=== PATIENT | male | born 1995 | race Two or more races ===

== ENCOUNTER 2016-04-29 09:29 | Inpatient (IN) | payer OTHER ==
[~2016-04-29] VITALS: Ht 180.3 cm; Wt 99.6 kg
--- NOTE | ~2016-04-29 | CLPRLASSUM ---
PATIENT: TUCKER SANTILLAN | | [facility] UNIT #: [id number] | [address] AGE/SEX: 20 M : 89 | [address] | [place] [id number] ADMIT/REG DATE: 04/29/16 | ROOM: [facility] LOC: ADTC | ADTC | Client Problem List/Assessment Summary Date: 05/05/16 Problems identified by the client: Client reported he was accepted into drug court and the project account manager recommended he come to residential treatment, instead of [facility]. Problems identified by significant others: His mother does not speak Upper Sorbian, but do plan to get them in for a session with an interpretor. Client's Strengths: Client identified his strengths as: He knows when to stop and he knows how to say no. Problem List: Code: T Client continues to use alcohol &/or drugs despite ongoing negative consequences. Code: T Client does not "reach-out to others for help" and instead resumes using alcohol &/or drugs. 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 Code: T Client needs to identify relapse warning signs and develop a plan to deal with them as they arise. Code Wells: T: to be addressed during course of treatment O: problem noted, expected to resolve itself with abstinence--specific tx plan not required R: problem noted, will be referred upon discharge PRIMARY COUNSELOR: JOIE Walker
--- NOTE | ~2016-04-29 | TXPLANREV ---
"PATIENT: TUCKER SANTILLAN | | [facility] UNIT #: [id number] | [address] AGE/SEX: 20 M : [birth year] | [address] | [place] [address] ADMIT/REG DATE: 04/29/16 | ROOM: [facility] LOC: ADTC | ADTC | Treatment Plan/Staffing Review Date: 05/12/16 Treatment plan was reviewed and determined appropriate as written: Yes Treatment plan was reviewed and the following changes/addition/deletions are necessary: Client is to continue working on treatment plan assignments. He is working on feelings letters. Discharge plans were reviewed and determined appropriate as previously documented: No Discharge plans were reviewed and determined to be as follows: Client is planning to return to his home, and will be recommended to attend aftercare, which we will set up prior to leaving, along with calling a sponsor on a regular basis and attending AA/NA meetings. Other pertinent issues discussed during this staffing review include: None at this time. Staff Present: Sary Arroyo PRIMARY COUNSELOR: JOIE Walker Client Signature Counselor Signature Date Time "
--- NOTE | ~2016-04-29 | TXPLANREV ---
"PATIENT: TUCKER SANTILLAN | | [facility] UNIT #: [id number] | [address] AGE/SEX: 20 M : 89 | [address] | [place] [id number] ADMIT/REG DATE: 04/29/16 | ROOM: [facility] LOC: ADTC | ADT | Treatment Plan/Staffing Review Date: 05/26/16 Treatment plan was reviewed and determined appropriate as written: Yes Treatment plan was reviewed and the following changes/addition/deletions are necessary: Client is to continue working on treatment plan assignments. He is finishing up with Relapse Prevention and is to continue reading the Big Book. Discharge plans were reviewed and determined appropriate as previously documented: Yes Discharge plans were reviewed and determined to be as follows: Client will discharge, return to his Mom's house, and attend aftercare here with us. He is fully aware that if he struggles at home with his Mom, or if he relapses even one time, he will be recommended to go to [facility]. 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 In the meantime, he is also to begin attending 3-5 AA/NA meetings per week, get and call a sponsor on a regular basis, and learn how to work a strong program of recovery, which includes doing community service work. Other pertinent issues discussed during this staffing review include: None at this time. Staff Present: Sary Jorge PRIMARY COUNSELOR: Charlene Hylton [facility] Client Signature Counselor Signature Date Time "
--- NOTE | ~2016-04-29 | RESCARESUM ---
"PATIENT: TYLER SANTILLAN | | [facility] UNIT #: [id number] | [address] AGE/SEX: 20 M : 89 | [address] | [place] [id number] ADMIT/REG DATE: 04/29/16 | ROOM: [facility] LOC: ADTC | ADT | Summary of Residential Care Primary Counselor: Charlene SALTER Date of Admission: 04/29/16 Date of Discharge: 05/27/16 Referral Source: Drug Court Primary Care Provider Prior to Admission: Self Admitting Diagnosis: 304.30 Cannabis Use Disorder, Severe; 304.40 Stimulant Use Disorder, Moderate, 305.40 Sedative Use Disorder, Mild; 305.10 Tobacco Use Disorder Discharge Diagnosis: Same Goals Achieved: Tyler was able to identify negative consequences of his addiction, by completing various packets, also designed to assist him in gaining insight to the disease concept, including Step 1. He wrote and processed feelings letters, worked on his anger issues, as well as relapse prevention. Continued Obstacles to Sobriety/Relapse Issues: Not attending aftercare, or going to AA/NA meetings, not getting and calling a sponsor on a regular basis, not dealing with anger and other feelings, not following drug court rules and regulations, not getting his work permit, not being able to find a job and not learning how to work a strong program of recovery. Family Issues Addressed: The only issues addressed were those written in feelings letters. His Mom did not attend family education, and he has deep anger toward his father that he addressed but wasn't willing to work thru. Y Individual Therapy Y Group Therapy Y Educational Series on Substance Abuse N Parents/Significant Others Attended Family Program N Acute Medical Problems During the Course of Treatment N Transferred to Hospital During the Course of Treatment Y Accepting of Substance Abuse Problem N Non-accepting of Substance Abuse Problem N Required Psychological or Psychiatric Consultation During the Course of Treatment Completed AA Step # 1 During This Level of Care Significant Incidences During Treatment: None Reason For Discharge: Y Completed Residential TX Goals and Ready For Next Level of Care N Left Tx Against Medical Advice/Treatment Goals Not Complete N Completed Residential Tx Goals But Refusing Continuing Care Recommendations N Discharged Due to Noncompliance/Treatment Goals not Completed PATIENT: TYLER SANTILLAN | | [facility] UNIT #: [id number] | [address] AGE/SEX: 20 M : 89 | [address] | [place] [address] ADMIT/REG DATE: 04/29/16 | [facility] LOC: ADTC | ADTC | Summary of Residential Care N Discharged Earlier Than Planned Due to: Continuing Care Plan/Recommendations: N Intensive Partial Care Y Sponsor N Partial Care Y AA Meetings/NA Meetings Y Outpatient N Co-dependency Services N Therapeutic Community N [facility] [address] N Mental Health Therapy N Marriage Counseling N Other Specific Continuing Care Plan: It is recommended that Tyler go home, work on getting his work permit, attend aftercare here with Krystina Ugarte, follow all drug rules and recommendations, attend 3-5 AA/NA meetings and get and call a sponsor on a regular basis and learn how to work a strong program of recovery. If he struggles at home, or if drug court is recommending it, he must follow the recommendation of going to sober living. 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 PRIMARY COUNSELOR: JOIE Walker"
--- NOTE | ~2016-04-29 | INDIVTXPLN ---
"PATIENT: TUCKER SANTILLAN | | [facility] UNIT #: [id number] | [address] AGE/SEX: 20 M : [birth year] | [address] | [place] [phone] ADMIT/REG DATE: 04/29/16 | ROOM: [facility] LOC: ADTC | ADTC | Individualized Treatment Plan Date: 05/05/16 Problem Statement/Issue Identified: Client has learned to deny or stuff feelings; needs to learn to identify and process feelings in a clean/sober manner. Goal: Client will learn how to identify and express feelings in a healthy, clean/sober manner. Objectives/Activities to achieve goal: 1. Client is to write feelings letters to the following people, each separately, and process them with counselor and with family, if able: Mother, sister, Grandma, Grandpa and father. Due Date:05/17/16 Complete: Incomplete: Client signature Date Counselor signature Date Outcome/Measurement of Progress Towards Goal: Counselor's signature Date "
--- NOTE | ~2016-04-29 | INDIVTXPLN ---
"PATIENT: TUCKER SANTILLAN | | [facility] UNIT #: [id number] | [address] AGE/SEX: 20 M : 89 | [address] | [place] [address] ADMIT/REG DATE: 04/29/16 | ROOM: [facility] LOC: ADTC | ADTC | Individualized Treatment Plan Date: 05/20/16 Problem Statement/Issue Identified: Client's method of expressing anger has been harmful to self and/or others, and is made worse by substance abuse, therefore, client needs to find other ways to deal with anger, so he can learn how to maintain his recovery. Goal: Client will learn healthy ways to deal with his anger. Objectives/Activities to achieve goal: 1. Client is to complete the Anger Log each time he gets angry about anything, and process what he learns with counselor. Due Date:05/27/16 Complete: Incomplete: 2. Client is to read and highlight all he can relate to in the Releasing Anger book and process with counselor what he learns. Due Date:05/27/16 Complete: Incomplete: 3. Client is to complete the Relapse Prevention packet and the relapse triggers paper, and process them with counselor. Due Date:05/27/16 Complete: Incomplete: Client signature Date Counselor signature Date Outcome/Measurement of Progress Towards Goal: Counselor's signature Date "
--- NOTE | ~2016-04-29 | TXPLANREV ---
"PATIENT: TUCKER SANTILLAN | | [facility] UNIT #: [id number] | [address] AGE/SEX: 20 M : [birth year] | [address] | [place] [phone] ADMIT/REG DATE: 04/29/16 | ROOM: [facility] LOC: ADTC | ADTC | Treatment Plan/Staffing Review Date: 05/19/16 Treatment plan was reviewed and determined appropriate as written: Yes Treatment plan was reviewed and the following changes/addition/deletions are necessary: Client is to continue working on treatment plan assignments. He is finishing up with feelings letters and will begin working on anger. Discharge plans were reviewed and determined appropriate as previously documented: No Discharge plans were reviewed and determined to be as follows: Client will benefit from going to sober living, however, there are several barriers, so it is not certain what we will recommend for his aftercare. Other pertinent issues discussed during this staffing review include: None at this time. Staff Present: Krystina Jorge PRIMARY COUNSELOR: JOIE Walker Client Signature Counselor Signature Date Time "
--- NOTE | ~2016-04-29 | INDIVTXPLN ---
"PATIENT: TUCKER SANTILLAN | | [facility] UNIT #: [id number] | [address] AGE/SEX: 20 M : 89 | [address] | [place] [address] ADMIT/REG DATE: 04/29/16 | ROOM: [facility] LOC: ADTC | ADTC | Individualized Treatment Plan Date: 05/05/16 Problem Statement/Issue Identified: Client continues to use alcohol &/or drugs despite ongoing negative consequences, and he did not know anyone to reach out to for help. Goal: Client will learn to identify negative consequences of his addiction, attend AA/NA meetings and meet men in recovery. Objectives/Activities to achieve goal: 1. Client is to complete the How to Get Started packet, process it with counselor and selected pages in group. Due Date:05/07/16 Complete: Incomplete: 2. Client is to complete Step 1, process it with counselor and selected pages in group. Due Date:05/09/16 Complete: Incomplete: 3. Client is to attend AA/NA meetings, ask for and get at least 5 names and numbers of men in recovery and share that list with counselor. Due Date:05/17/16 Complete: Incomplete: Client signature Date Counselor signature Date Outcome/Measurement of Progress Towards Goal: Counselor's signature Date "
--- NOTE | 2016-04-29 10:23 | NUR ---
SPIRITUAL EDUCATION 1 HR. Topics today were orienting newcomers and discussion and presentation on segments of TOWARDS SPIRITUALITY.
--- NOTE | 2016-04-29 11:00 | NUR ---
INITIAL SESSION 1 HR: Clt was oriented to tx plans, schedules and what to expect from tx and this counselor. He advised he was supposed to start IOP, but did not do so, and his levels for THC were increasing, so was recommended by drug court to come to residential tx. Clt stated he was not able to get his green card, and isn't sure if he'll be able to get a job when he gets out of tx. He lives w/ his mom and sister. His mom does not speak Yoruba, so will determine if she will come for family session and we will get an interpretor. He is to begin working on initial paperwork.
--- NOTE | 2016-04-29 11:04 | NUR ---
ADMISSION NOTE Rights/Responsibilities: Copy given and explained to client. Signed and accepted by client. Client oriented to physical lay out of the ADTC unit, given Big Book and admission packet. A Kaushik was assigned. Ruben Client is a 20yr old single male. Referred by Drug Court. Brought to tx by mother, lives in [place], [place]. DOC, Cannabis, last used 03/28/16, 2 joints. No allergies, No meds. Mother will participate in tx. Was searched no contraband found. Initial paperwork given and guidelines gone over. Doctor has been notified.
--- NOTE | 2016-04-29 23:00 | NUR ---
tech note: Client played Pictionary for recreation & attended onsite NA meeting.Client was checked into his room & seen by the DR. Client gave his first intro. SE: coming to treatment.
--- NOTE | 2016-04-29 23:28 | NUR ---
Eduction: 1 Hour. Client attended "Disease Concept" lecture.
--- NOTE | 2016-04-30 05:38 | NUR ---
tech note: Client was motionless in no distress at all bed checks.
--- NOTE | 2016-04-30 10:19 | NUR ---
Tech Note: Client participated in Spiritual Enrichment. Client stated that he is working on, "How to Get Startedin Treatment."
--- NOTE | 2016-04-30 11:51 | NUR ---
Group 1.5 Hr Ratio 1:11/Topics today were orientating two new members to group rules and goals. A feelings letter and dealing with anger. Client was orientated to group rules and goals. He shared he usally stuffs his feelings and then blows up but does not solve his problems.
--- NOTE | 2016-04-30 15:33 | NUR ---
Education 1 Hour: Client heard a panel of speakers from the local recovery community, who shared their experience, strength and hope.
--- NOTE | 2016-04-30 16:00 | NUR ---
IS 1 HR: Umer shared that he is here w/o a green card, due to being in correction when he was supposed to go to court for it. He also stated that his Mom's friend is taking care of it for him, but that he will have to be the one to talk on the phone to them. He heard he needs to take care of these things on his own, so he can stay here and complete drug court, as there is always a chance he could be deported. Umer stated his grandma lives in [place] so if he does have to go back, he has family there. He was given Step 1 and is working on his How to Get Started pkt.
--- NOTE | 2016-04-30 17:09 | NUR ---
Step education/1 hr/ Focus was on step one. Each person completed a worksheet on this topic and then chose 4 from sheet to share out loud. This person participated.
--- NOTE | 2016-04-30 23:22 | NUR ---
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, participated in Guided Meditation and attended on-site AA meeting. SE: JIM
--- NOTE | 2016-05-01 04:35 | NUR ---
Bed Note: Clt lay motionless in bed with eyes closed showing no distress at all bed checks.
--- NOTE | 2016-05-01 10:55 | NUR ---
FAMILY CONTACT: Umer's mother does not speak Qatari, but his sister does. They are aware they can visit this weekend. At some point during umer's stay in tx, we will get them in for a family session and show them the video Disease Concept.
--- NOTE | 2016-05-01 10:56 | NUR ---
TRAUMA NOTE: Clt denies any trauma at this time.
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
--- NOTE | 2016-05-01 13:00 | NUR ---
PEER REVIEWS, 1 HR: Clt participated in peer review process and was able to give open and honest feedback to those receiving a review.
--- NOTE | 2016-05-01 15:47 | NUR ---
Tech Note: Client watched the second half of Pleasure [employer]ven for education and is working on Step 1.
--- NOTE | 2016-05-01 20:26 | NUR ---
Tech note: client watched tv and movies, client was late for guidelines SE:video
--- NOTE | 2016-05-02 04:32 | NUR ---
Bed note: client was in bed with eyes closed and no distess at all bed checks. except was awake at first bed check talking quietly with roommate
--- NOTE | 2016-05-02 16:24 | NUR ---
Tech Note: Client attended N.A.Panel and is working on Step One and also had a visit.
--- NOTE | 2016-05-02 20:09 | NUR ---
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 Client watched tv. SE: visit.
--- NOTE | 2016-05-03 04:58 | NUR ---
Bed Note : Client had eyes closed and in no distress at all bed checks.
--- NOTE | 2016-05-03 16:18 | NUR ---
Tech Note: Client is working on step 1, client had visitors
--- NOTE | 2016-05-03 23:33 | NUR ---
TECH NOTE: Client attended AA panel, participated in community clean and watched tv/movies. SE: seeing old friend
--- NOTE | 2016-05-04 04:14 | NUR ---
BED NOTE: Client was in bed, motionless with eyes closed all three bed checks.
--- NOTE | 2016-05-04 10:39 | NUR ---
Tech notes: Client is working on Step 1
--- NOTE | 2016-05-04 12:44 | NUR ---
Experiential Group 1.5 hr/ Clients all participated in family sculpturing by role-playing, feedback, and relating. They also shared what they needed to get help with and a gratitude. Client wants help to keep out of his head and glad family member is healthy.
--- NOTE | 2016-05-04 13:31 | NUR ---
Education note: Client watched video "It can't happen to me"
--- NOTE | 2016-05-04 16:00 | NUR ---
RECOVERY 101 1 HR/ Clients learned about Fundamentals of recovery and tools from AA/NA. They participated by sharing what they hear at meetings that are important for their recovery like: working the steps, how to get and use sponsors, reading C.A.L. literature, service work, HP concept, opening up, slogans, using the Serenity Prayer, attending functions, what is closed and open meetings, etc.
--- NOTE | 2016-05-04 19:07 | NUR ---
Education 1HR: Clt attended lecture given by counselor on "Communication".
--- NOTE | 2016-05-04 22:26 | NUR ---
Tech note: Client participated in group by playing catch phrase. Client attended an onsite NA meeting. SE: NA meeting
--- NOTE | 2016-05-05 05:06 | NUR ---
Bed note : Client was motionless with eyes closed at all bed checks.
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
--- NOTE | 2016-05-05 16:33 | NUR ---
Tech Note: Client watched video The Enabler and is working on Step 1.
--- NOTE | 2016-05-05 18:47 | NUR ---
Education: 1 Hour. Client attended presentation given by [facility] AIDS/STDS/HIV. HIV testing was available.
--- NOTE | 2016-05-05 20:15 | NUR ---
Relapse Prevention,04/03 1.0, Client attended and participated in relapse prevention education which focused on internal and external triggers.
--- NOTE | 2016-05-05 23:06 | NUR ---
Tech note: Client participated in rec by playing pictionary. Client went to guided meditation and attended an onsite AA meeting. SE: Whole day
--- NOTE | 2016-05-06 05:31 | NUR ---
tech note: client was motionless in no distress at all bed checks.
--- NOTE | 2016-05-06 09:16 | NUR ---
SPIRITUAL EDUCATION 1 HR. We started a two part education on Forgiveness today and group discussion on baum points.
--- NOTE | 2016-05-06 10:19 | NUR ---
Tech Notes: Client is working on Fl's.
--- NOTE | 2016-05-06 11:30 | NUR ---
GROUP 1.5 HRS. 1:10 Clients oriented new peer to purpose and rules of group. This client got his HOW TO GET STARTED IN TREATMENT workbook out during time of orienting peer and was asked to put it down until time to share. When sharing assigned pages, he expressed resentment towards drug court that they will not let him work. Upon further discussion, he reports he does not have a work permit. Peers expressed concerns about client being angry today which he owned. He was given supportive feedback by peers as he shared about his life story and not wanting to be in [place] and not feeling accepted. Client states he does not trust anyone except his counselor. Peer shared his STEP 1 ASSIGNMENTS including compromising values and effects on others. attentive and offered appropriate feedback.
--- NOTE | 2016-05-06 23:20 | NUR ---
Tech note:Client participated in rec-worked on beaded projects SE:waking up
--- NOTE | 2016-05-06 23:40 | NUR ---
Education: 1 hour lecture on step 2 & 3 given by counselor
--- NOTE | 2016-05-07 04:39 | NUR ---
Bed note: client was in bed with eyes closed and no distress at all bed checks.
--- NOTE | 2016-05-07 11:30 | NUR ---
AM GRP 1.5 HRS, Ratio 1:11/ Clt participated in grp discussion on various topics, but primarily could relate to what do he had to pay to stay using. He advised he has argued w/ family and pushed people away. He stated he has struggled w/ trusting people, so knows people have not been able to trust him either.
--- NOTE | 2016-05-07 11:32 | HP ---
ADMIT: 04/29/2016 RM/LOC: [facility] MR#: [id number] [address] [facility] [address] [place], [place] [id number] TUCKER SANTILLAN [address] [place] [address] [place] [address] History and Physical SEX: M AGE: 20 : 1995 DATE OF SERVICE: This is for his admission to the residential care program at the [facility]. CHIEF COMPLAINT: Drug problem, recent failed UA while on Drug Court. CLINICAL HISTORY: The patient is a 20-year-old male, admitted to the residential care program for treatment of his cannabis use disorder. The patient comes to treatment through Drug Court after failing a UA for marijuana. The patient notes that pot is his drug of choice. He first started using marijuana at age 14, and has been a regular user for the last 6 years typically smoking about 2 to 3 g of pot per day. He notes over the last summer, he did get into cocaine and was using cocaine regularly on weekends and used regularly from August to December of 2015. In addition to his cocaine and marijuana use, the patient admits to abusing Xanax and tramadol over the past summer as well. The patient notes that he was arrested for possession with intent to distribute cocaine and Xanax that occurred last summer and as a result of that, he was placed on Drug Court. As a portion of his Drug Court agreement, he was doing outpatient counseling, but with the positive UA, was referred to residential treatment. The patient notes that he rarely drinks, will occasionally drink to intoxication, but he prefers pot over alcohol. He notes he really has not used any drugs since November of 2015, when he was arrested. The patient spent from November of 2015 to 01/25/2016 in nursing home. He then went through Drug Court and got out of nursing home. He notes he smoked pot on one occasion on 03/27/2016, which is when he had the dirty UA. As noted, admitted at this time for treatment of his cannabis use disorder, stimulant use disorder, and benzodiazepine use disorder. PAST MEDICAL HISTORY: Previous Hospitalizations: None. Previous Operations: None. CURRENT MEDICATIONS: None. ALLERGIES: NONE KNOWN. MEDICAL ILLNESSES: Denies any chronic health problems. REVIEW OF SYSTEMS: A 12-point review of systems is negative with no significant cardiac, pulmonary, GI, , musculoskeletal, or neurologic problems. The patient notes that he smokes less than a pack a day. In the past, he also used to use some chewing tobacco, but he is trying to quit all forms of tobacco at this time. SOCIAL HISTORY: The patient graduated high school in 2014. 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 He lost his current job when he was arrested in November and has been unemployed since then. He lives with his mother and younger sister. He notes he is the primary breadwinner of the home. ADMIT: 04/29/2016 RM/LOC: [facility] MR#: [id number] [address] [place] [id number] LAI PATRICIO [address] [place] [address] History and Physical SEX: M AGE: 20 : 1995 FAMILY HISTORY: He notes that he was born in [place] and knows very little about his father. His parents split up when he was quite young. His mother moved around for a while, but he has been living in [place] for the past 7 years. He is unaware of any other family history of drug or alcohol problem in the family. PHYSICAL EXAMINATION: VITAL SIGNS: Temp 95.8, pulse 57, respirations 20, blood pressure 132/77, height 5 feet 11 inches, weight is 217 pounds. GENERAL: The patient is a 20-year-old male, who appears his stated age. He is in no acute distress. He is oriented x3. HEENT: Entirely unremarkable. Nose and throat noninflamed. Oropharynx normal. NECK: Supple. Thyroid not enlarged. No cervical adenopathy. No neck vein distention. LUNGS: Noted to be clear. HEART: Has a regular rhythm without murmur. ABDOMEN: Soft, nontender. No masses. No organomegaly. Bowel sounds normoactive. GENITALIA: Normal male. EXTREMITIES: Normal to gross exam. Full range of motion. No bony deformities. No clubbing or cyanosis. INTEGUMENT: No rashes or worrisome skin lesions. NEUROLOGIC: Within normal limits. No focal deficit. Balance and gait normal. Cranial nerves II through XII grossly intact. MENTAL STATUS EXAMINATION: He is pleasant, cooperative. Affect is appropriate. He has no bizarre ideation. No delusions. No hallucinations. No significant depressive symptoms. He is oriented x3. Memory is intact. He is of average intelligence, however, insight is limited and judgment is guarded. ASSESSMENT: At the time of admission: 1. Cannabis use disorder, severe. ADMIT: 04/29/2016 RM/LOC: [facility] MR#: [id number] [address] [place] [id number] [place] [address] History and Physical SEX: M AGE: 20 : 1995 2. Stimulant/cocaine use disorder, moderate. 3. Sedative hypnotic/benzodiazepine use disorder, mild. 4. Tobacco use disorder. PLAN: Plan is to admit the patient to the residential care program with a tentative discharge date of 05/27/2016. Upon completion of treatment, he is unsure of his plan. He will follow through on aftercare recommendations made by the staff at the time of discharge from residential care. The patient should consider going to a sober living community to help facilitate long-term sobriety; however, he would like to return to his home where he lives with his mother and sister and do outpatient aftercare here at [facility]. Arron Rogel MD/ marquez JOB #: [id number] CC: Arron Rogel, Attending Physician FAMILY PHYSICIAN, Family Physician
--- NOTE | 2016-05-07 14:21 | NUR ---
Education 1 Hour: Client heard a presentation on, "Marijuana."
--- NOTE | 2016-05-07 14:47 | NUR ---
FAMILY EDUCATION 3 HRS. Client attended alone and took part in the discussion on the disease concept. Client shared chemical history and the consequences.
--- NOTE | 2016-05-07 14:59 | NUR ---
Tech Note: Client participated in Spiritual Enrichment in the morning and walked in the halls for afternnon exercise. Client stated that he is working on Step One and writing Feelings Letters.
--- NOTE | 2016-05-07 23:05 | NUR ---
Tech Note: Client participated in rec and attended A.A.Meeting.
--- NOTE | 2016-05-07 23:21 | NUR ---
Education Note: Client watched the healthy families video which lasted an hour.
--- NOTE | 2016-05-08 04:42 | NUR ---
Bed note: Client was in bed with eyes closed and no distress at all bed checks, client was awake at first bed check
--- NOTE | 2016-05-08 11:30 | NUR ---
Group 1.5hr/ 11:1 Clients all were attentive as peers shared GS packets and some shared how they relate. This client was attentive and mostly quiet.
--- NOTE | 2016-05-08 11:30 | NUR ---
Group 1.5hr/ 11:1 Clients all were attentive as peers shared GS packets and some shared how they relate. This client did give feedback and relate, he shared his GS packet with the group also. He stated "my addiction took over and controlled me". He also had resentment with a won that told on him to police and he is resentful so was given feedback on the damage of resentments and how to forgive.
--- NOTE | 2016-05-08 15:21 | NUR ---
PEER REVIEWS 1 HR: Clt participated in peer review process and was able to give open and honest feedback to those receiving a review.
--- NOTE | 2016-05-08 16:28 | NUR ---
Tech Note: Client watched a video "How to Sabotage Your Treatment" and is working on Feelings Letters.
--- NOTE | 2016-05-08 23:49 | NUR ---
TECH NOTE: Client participated in guideline reading, watched tv/movies and used the phone. SE: meeting with counselor
--- NOTE | 2016-05-09 04:47 | NUR ---
BED NOTE: Client was in bed, motionless with eyes closed all three bed checks.
--- NOTE | 2016-05-09 12:25 | NUR ---
PEER REVIEWS 1 HR: Clt participated in peer review process and was able to give open and honest feedback to those receiving a review.
--- NOTE | 2016-05-09 16:17 | NUR ---
Tech Note: Client went to AA mtg at [address] [place] [address]. Is working on Feelings Letters.
--- NOTE | 2016-05-09 20:04 | NUR ---
TECH NOTE: Client played Catch Phrase for REC, attended off site AA meeting, watched TV/movies and used phone. SE: all day
--- NOTE | 2016-05-10 04:48 | NUR ---
Bed Note: Clt lay motionless in bed with eyes closed showing no distress at all bed checks.
--- NOTE | 2016-05-10 16:00 | NUR ---
Tech Note: Client participated in Big Book Study. Client stated that he is working on writing Feelings Letters. Client received visitors.
--- NOTE | 2016-05-10 22:53 | NUR ---
TECH NOTE: Client attended AA panel, participated in community clean and watched tv/movies. SE: all day
--- NOTE | 2016-05-11 04:24 | NUR ---
Bed Note: Clt lay motionless in bed with eyes closed showing no distress at all bed checks.
--- NOTE | 2016-05-11 10:17 | NUR ---
Tech notes: Client is working on Fl's.
--- NOTE | 2016-05-11 12:00 | NUR ---
Group 1.5hr/ 12:1 Clients heard peer share about guilt and many client gave feedback and related. This client did get involved.
--- NOTE | 2016-05-11 12:42 | NUR ---
Education Note: Client attended educational speaker Kit on Crossaddiction.
--- NOTE | 2016-05-11 17:00 | NUR ---
FAMILY EDUCATION 3 HRS. Client attended alone and took part in the discussion on the family roles, codependency and detachment. He related to family hero role while peers see him as lost child which he disagreed with that feedback. Peers agreed that client has opened up since he first arrived. He states he get quiet when he is angry because he has too much to lose to get in a fight. He also shared that his younger sister resents him and there is a lot of animosity between them.
--- NOTE | 2016-05-11 20:35 | NUR ---
Education: 1 hour lecture on feelings given by counselor
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
--- NOTE | 2016-05-11 23:43 | NUR ---
Tech Note: Client was in Family SE: Family
--- NOTE | 2016-05-12 04:01 | NUR ---
bed note: client was in bed with eyes closed and no distress at all bed checks.
--- NOTE | 2016-05-12 13:18 | NUR ---
A.M.1.5 hr group/ Group heard assignments then discussed anger, how to manage anger, forgivness, assertivness and making amends. This client was attentive.
--- NOTE | 2016-05-12 15:00 | NUR ---
BIG GRP 5:21/ We had a big grp to confront sleeping pills being on the unit, dishonesties, and anything else going on that needed to be addressed. Clt denied knowing someone had brought anything on the unit. He sat mostly quiet, until one of his peers told him there are people having issues w/ him and that he has a bad attitude. Clt asked the grp who has a problem with him, and when noone said anything or put their hand up, he asked them to come to him and let him know if they have an issue.
--- NOTE | 2016-05-12 15:15 | NUR ---
Education Note: Client heard a presentation on, "Grief."
--- NOTE | 2016-05-12 15:26 | NUR ---
Tech Note: Client particiapted in light stretching for morning exercise and walked in the halls in the afternoon. Client stated that he is working on writing Feelings Letters.
--- NOTE | 2016-05-13 00:06 | NUR ---
Education: 1 hour lecture given by Counselor on Step 1
--- NOTE | 2016-05-13 00:19 | NUR ---
Tech note: client worked on projects for the alumni sancho for rec and attended AA meeting SE: Group
--- NOTE | 2016-05-13 04:16 | NUR ---
Bed Note: Clt lay motionless in bed with eyes closed showing no distress at all bed checks.
--- NOTE | 2016-05-13 10:29 | NUR ---
Tech Notes: Client is working on Fl's.
--- NOTE | 2016-05-13 12:55 | NUR ---
Group 1.5hours 1:11 Clients discussed the topic of resentments. Client shared how he could relate to having resentments towards his mother because he felt that he had to take care of her and his sister. Student: Lincoln Mackay BS [facility]
--- NOTE | 2016-05-13 13:27 | NUR ---
Education note: Client attended education by [facility]
--- NOTE | 2016-05-13 16:00 | NUR ---
IS 1 HR: Umer had caught me in the lopez earlier about the phone call he had made to his Mom's friend about getting his work visa and that she told him he may very well lose it, so he needs to get an atty. Umer stated he already pretty much knew this, so wasn't shocked, and isn't real worried yet, so asked for a note to call her again tomorrow as she is going to [place] to talk to someone about it. He is to continue working on his feelings letters.
--- NOTE | 2016-05-13 17:51 | NUR ---
SPIRITUAL EDUCATION 1 HR. Today we discussed ways to quiet the mind and meditation and creativity.
--- NOTE | 2016-05-13 23:03 | NUR ---
Grabit note: Client played a game for recreation & attended onsite NA meeting. Client was redirected by [employer] for his language. SE: Group.
--- NOTE | 2016-05-14 02:18 | NUR ---
Education: 1 Hour. Client attended "Unresolved Anger" video & discussion presented by staff.
--- NOTE | 2016-05-14 04:59 | NUR ---
BED NOTE: Client was in bed motionless with eyes closed all three bed checks.
--- NOTE | 2016-05-14 11:20 | NUR ---
Tech Note: Client participated in Spiritual Enrichment and followed programming.
--- NOTE | 2016-05-14 11:39 | NUR ---
Group 1.5hours 1:11 Clients shared assignments from their Getting Started packet and feelings letters. Client sat quiet for most of the group except to make a comment about people not getting angry for not being able to share assignments in group. Student: Lincoln Niño
--- NOTE | 2016-05-14 13:08 | NUR ---
Education 1 Hour: Client heard a presentation from a member of the recovery community, who shared his experience, strength and hope.
--- NOTE | 2016-05-14 16:54 | NUR ---
STEP EDUCATION/1 HR/ focus was on step 4. Discussed what step 4 was about and then each person answered if there were any things in their family history that bothers them and do they feel they are blocked in any area. This client participated and shared how hard it was when he came here at age 8 not knowing the language and it took him 2 years to learn it.
--- NOTE | 2016-05-14 20:21 | NUR ---
Education 1HR: Clt watched video by Hannah Haddad on Step 5.
--- NOTE | 2016-05-14 22:34 | NUR ---
TECH NOTE: Client played Catch Phrase for REC, participated in Guided Meditation and attended onsite AA meeting. SE: all day
--- NOTE | 2016-05-15 04:27 | NUR ---
Bed Note: Clt lay motionless in bed with eyes closed showing no distress at all bed checks.
--- NOTE | 2016-05-15 12:55 | NUR ---
Group 1.5 hr/ 12:1 Client did share his Step 1 and did a very good job owning how his addiction hurt him and others. He heard peers relate to him and give feedback.
--- NOTE | 2016-05-15 13:00 | NUR ---
PEER REVIEWS 1.25 HRS: Clt participated in peer reviews and took a risk to give open and honest feedback to those receiving a review.
--- NOTE | 2016-05-15 15:45 | NUR ---
Tech Note: Client watched a video "It Can't Happen To Me" and is working on Feelings Letters.
--- NOTE | 2016-05-15 22:33 | NUR ---
Tech note : Client watched tv, played games and talked on the phone. Had a really hard time waiting his turn on the phone. very aggressive phone call, swearing in spanis and disrespectful to Marde. SE; card games
--- NOTE | 2016-05-16 05:00 | NUR ---
Bed note: Client was in bed with eyes closed and no distress at all bed checks.
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
--- NOTE | 2016-05-16 15:13 | NUR ---
Tech Note: Client attended N.A.Panel and is working on FL's
--- NOTE | 2016-05-16 20:41 | NUR ---
tech note: client played game for recreation & attended offsite AA meeting. Client and his roommate held the group up from leaving the unit for the meeting-tech went to their room to get them. This client was mouthy and making excuses for the delay. SE: NA Panel.
--- NOTE | 2016-05-17 15:50 | NUR ---
Tech Note: Client is working on Total-traxs. He watched tv/movies.
--- NOTE | 2016-05-17 22:17 | NUR ---
Tech note: Participated in community clean, attended AA panel with Marquise Hurley SE : AA speaker
--- NOTE | 2016-05-18 04:58 | NUR ---
Bed note: Client was in bed with eyes closed and no distress at all bed checks.
--- NOTE | 2016-05-18 11:30 | NUR ---
Experiential Group 1.5hr/ Clients all participated in Family Sculpturing by role-playing, relating and giving feedback. This client was involved and attentive.
--- NOTE | 2016-05-18 13:26 | NUR ---
Education note: Client attended education speaker Janine on Tobacco.
--- NOTE | 2016-05-18 14:17 | NUR ---
Tech Note: client is working on Fl's.
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
--- NOTE | 2016-05-18 18:03 | NUR ---
Education: 1 Hour. Client attended "Forgiveness" lecture presented by staff.
--- NOTE | 2016-05-18 23:12 | NUR ---
tech note: client played a game for recreation & attended onsite NA meeting. SE: smoking education.
--- NOTE | 2016-05-19 04:34 | NUR ---
tech note: client was motinless in no distress at all bed checks.
--- NOTE | 2016-05-19 15:36 | NUR ---
Tech Note: Client attended programming on Relapse Prevention and is working on the Big Book.
--- NOTE | 2016-05-19 16:29 | NUR ---
Relapse Prevention, 04/06 ration, 1.0 hours, Client attended and participated in relapse prevention education which focused on relapse triggers/issues.
--- NOTE | 2016-05-19 17:04 | NUR ---
A.M. 1.5 hr res group/ratio 1:8/ Group heard a grief letter, a getting started, and also discussed shame, guilt, and forgiving self. This client gave feedback.
--- NOTE | 2016-05-19 22:19 | NUR ---
TECH NOTE: Client attended Alumni meeting and on-site AA meeting. Client was upset that tech would not give information about other client SE: all day
--- NOTE | 2016-05-19 22:55 | NUR ---
EDUCATION NOTE: 1HR lecture on Shame given by counselor
--- NOTE | 2016-05-20 04:42 | NUR ---
Bed note: Client was in bed with eyes closed and no distress at all bed checks.
--- NOTE | 2016-05-20 10:05 | NUR ---
Tech note: Client is working on BB and mtg with [employer]
--- NOTE | 2016-05-20 12:45 | NUR ---
Education note: Client attended speaker Byron Becerra
--- NOTE | 2016-05-20 15:00 | NUR ---
IS 1 HR: We discussed clandi's anger and what the underlying feelings are. He wasn't able to recognize any of them until we broke them down and eventually he identified that he felt sad, hurt, afraid and ashamed at different times. He is to write them on an anger log and any additional times in the future to learn more about feelings.
--- NOTE | 2016-05-20 18:16 | NUR ---
Education: 1 Hour. Client attended "Boundaries" lecture presented by staff.
--- NOTE | 2016-05-20 22:11 | NUR ---
Tech note : Client played pictionary for rec and attended an onsite NA meeting. SE: NA meeting
--- NOTE | 2016-05-21 05:18 | NUR ---
tech note: client was motionless in no distress at all bed checks.
--- NOTE | 2016-05-21 11:30 | NUR ---
AM GRP 1.5 HRS, Ratio 1:11: Clt sat quietly, until prompted, then did bring up that he has some anger toward his Mom from his childhood, so heard he needs to deal with it now, before leaving tx. He was very reluctant and did not want to write another letter, but was given the assignment to write her a vent/anger letter before our session today.
--- NOTE | 2016-05-21 15:46 | NUR ---
Tech Note: Client participated in Spiritual Enrichment in the morning and went for an outdoor walk in the afternoon. Client stated that he is working on, " Relapse Prevention."
--- NOTE | 2016-05-21 16:01 | NUR ---
step education/1 hr/ Focus was on step 6 and looking at character defects. Each person shared some questions and answers and identified what character defects they are ready to let go of and what ones they are not willing to let go of. This client participated but counselor could tell something was wrong. I asked client if he wanted to share and he said no and it was personal.
--- NOTE | 2016-05-21 16:33 | NUR ---
Education 1 Hour: Client heard a presentaion on "Wellness in Recovery."
--- NOTE | 2016-05-21 23:05 | NUR ---
Tech note: Client worked on craft projects for the dance for rec and attended AA meeting.om brought food for everyone SE:AA meeting.
--- NOTE | 2016-05-22 00:10 | NUR ---
Education note: Clients watched a movie on "my attitude' by Alonso Atwood.
--- NOTE | 2016-05-22 04:53 | NUR ---
Bed note; client was motionlees, with eyes closed at all bed checks.
--- NOTE | 2016-05-22 12:21 | NUR ---
Group 1.5 Hr Ratio 1:12/Topics today were a change plan, resentment packet and a getting started. One new peer was orientated to group rules and goals. Client shared he could relate to what peers were sharing from assignments andissues. Client commented on a peer being immature and the peers got up and left.
--- NOTE | 2016-05-22 13:57 | NUR ---
PEER REVIEWS 1.25 HRS: Clt participated in peer reviews and took a risk to give open and honest feedback to those receiving a review.
--- NOTE | 2016-05-22 16:12 | NUR ---
Tech Note: Client went with group for outside walk and watched "Marijuana", by Virgilio Atwood, for education. Clt is working on a Spirituality packet.
--- NOTE | 2016-05-22 23:44 | NUR ---
Tech Note: Client read guidelines with peers. He watched tv. SE: All Day
--- NOTE | 2016-05-23 05:32 | NUR ---
Bed Note: Client was motionless with eyes closed at all bed checks.
--- NOTE | 2016-05-23 15:43 | NUR ---
Tech Note: Client working on Relapse Prevention.
--- NOTE | 2016-05-23 20:29 | NUR ---
Tech Note: Client played a game for rec. They also attended the A.A.Meeting at [facility] and [place]. SE: Movies
--- NOTE | 2016-05-24 05:28 | NUR ---
Bed Note: Client was motionless with eyes closed at all bed checks.
--- NOTE | 2016-05-24 15:26 | NUR ---
Tech Note: Client participated in Big Book Study. Client stated that he is working on, "Relapse Prevention"
--- NOTE | 2016-05-24 23:31 | NUR ---
Client attended A.A.Panel and helped with community clean. SE: Playing cards
--- NOTE | 2016-05-25 05:03 | NUR ---
Bed Note: Client was motionless with eyes closed at all bed checks.
--- NOTE | 2016-05-25 09:00 | NUR ---
IS 1 HR: Clt stated he has been thinking about where he needs to go, and stated he still wants to go home, but if he HAS to go to sober living, he'd rather go to the [facility]. He has heard the homeless shelters have bed bugs, people are using, and he still wants to go home to help his Mom. Clt heard we can give it a try that he go home and work on getting his work permit, do aftercare here, and if he is struggling, or relapses, or can't get along with his Mom, the plan is to go somewhere other than his Mom's house. Umer is in agreement with this.
--- NOTE | 2016-05-25 09:11 | NUR ---
CASE MAN: A email was sent to Charanjit and Paolo (drug court) informing them clt d/c's on the and will return to his Mom's home, where he can work on getting his work permit, and do lee/spot jobs until he is able to get his permit, IF he can. He is to do aftercare here with [facility] and be in this counselor's group.
--- NOTE | 2016-05-25 10:10 | NUR ---
Tech note: Client is working on BB and mtg with [employer]
--- NOTE | 2016-05-25 11:30 | NUR ---
AM GRP 1.5 HRS, Ratio 1:11/ Clt participated in grp discussion on various topics, and could relate to a peer who doesn't want anything to do w/ his father, as clt doesn't either. His father got his mom and left her to go back to his family. He was a man with other kids, so clt heard again, that it doesn't have anything to do w/ him, that his father isn't a part of his life, and clt continues to call him a "piece of shit" father.
--- NOTE | 2016-05-25 14:37 | NUR ---
Education note: Client attended speaker for education Andrea Oseguera
--- NOTE | 2016-05-25 16:00 | NUR ---
RECOVERY 101 1 HR/ Clients all filled out list of 30 consequences from their use to help look at how each addictive chemical they ever used has caused problems and how minimizing can sabotage treatment. Discussed this and also learned about phases of recovery process from Denial to Acceptance & Surrender.
--- NOTE | 2016-05-25 22:39 | NUR ---
TECH NOTE: Client played Catch Phrase in REC, and attended NA meeting. Client apologized to tech for incident from previous day. SE: NA
--- NOTE | 2016-05-25 23:53 | NUR ---
tech note: Client c/o a cough and requested chemo schafer @ [id number].
--- NOTE | 2016-05-25 23:58 | NUR ---
Education: 1 Hour. Client attended "Adult Children" presentation given by staff.
--- NOTE | 2016-05-26 05:23 | NUR ---
BED NOTE: Client was in bed, motionless with eyes closed first two checks. At last check client looked at tech
--- NOTE | 2016-05-26 11:30 | NUR ---
GROUP 1.5 HRS. 1:10 Group discussion included defenses of blaming others and willingness to take responsibility for one's recovery. Peers processed HOW TO GET STARTED IN TREATMENT assignments. This client shared that he will leave tomorrow after group. He was asked what has changed for him as he appears more relaxed and he identifed being acceptance and letting go of the need to control others. He shared concern that he may get deported due to legal issues but is more accepting. Counselor asked client about note with him being upset on the phone over the weekend and he shared about issue with his family.
--- NOTE | 2016-05-26 16:29 | NUR ---
Tech Note: Client attended speaker meeting, presented by [employer], and Relapse Prevention education. Client is currently working on the Big Book.
--- NOTE | 2016-05-26 16:29 | NUR ---
Relapse Prevention; 1.0 hours; Client attended and actively participated in relapse prevention which focused on compulsive behaviors and relapse.
--- NOTE | 2016-05-26 23:23 | NUR ---
Education note: 1 hour lecture given by counselor on "Self Esteem"
--- NOTE | 2016-05-26 23:34 | NUR ---
Tech note: Client worked on projects for the [employer] [facility] [employer] and attended AA meeting SEF:all day
--- NOTE | 2016-05-27 04:12 | NUR ---
BED NOTE: Client was in bed, motionless with eyes closed all three bed checks.
--- NOTE | 2016-05-27 10:53 | NUR ---
Tech note: Client is working on BB
--- NOTE | 2016-05-27 11:41 | NUR ---
DISCHARGE NOTE Client left tx with mother and all personal belongings were sent with. Discharge insructions gone over and copy given.
--- NOTE | 2016-05-27 11:55 | NUR ---
AM GROUP 9:1/1.5 HR: Client and peers participated as three peers processed issues and assignments. Much of the focus became how to rebuild a healthy and realistic value system after compromised original values to such a degree in active addiction. This client was mostly quiet announcing that he would be leaving following group. He appeared attentive.
--- NOTE | 2016-07-09 10:17 | DS ---
ADMIT: 04/29/2016 RM/LOC: [facility] MR#: [id number] [facility] [address] [place], [place] [id number] TUCKER SANTILLAN [address] [place] [address] [address] [place] [address] General Discharge Summary SEX: M AGE: 20 : 1995 ADMISSION DATE: 04/29/2016 DISCHARGE DATE: 05/27/2016 ADMITTING DIAGNOSIS: As per history and physical. FINAL DIAGNOSES: 1. Cannabis use disorder, severe. 2. Stimulant use disorder, moderate. 3. Sedative use disorder, mild. 4. Tobacco use disorder. COMPLICATIONS: None. OPERATIONS: None. CLINICAL HISTORY: The patient is a 20-year-old male, admitted to the residential care program for treatment of his cannabis use disorder as well as his stimulant use disorder and sedative use disorder. For details of his pattern of usage and problems associated with his ongoing substance abuse and chemical dependency, please see the clinical history portion of the dictated history and physical. Please also see dictated history and physical for pertinent past medical history, physical exam findings as well as initial diagnosis. LABORATORY AND X-RAY SUMMARY FROM THIS ADMISSION: None indicated, none performed hospital. HOSPITAL COURSE: The patient was admitted to the residential care program and assigned to his primary counselor, Charlene Hylton. He remained in the treatment program from 04/29/2016 through 05/27/2016. While in treatment, he participated in individual therapy and group therapy. He was also given the educational series on substance abuse and worked on many of these assignments while in the treatment process. While in treatment, he was accepting of his substance abuse problem and worked well with the staff in both individual and group settings. He was able to complete step 1 of AA during this level of care. While in treatment, he had no significant medical issues. While in treatment, he was able to identify the negative consequences of his addiction. He was able to recognize his powerlessness over alcohol and drugs. He gained better insight into the disease concept of addiction. He attended family education and family group sessions, although none of his family participated. He processed feelings letters to his family members. He worked on anger control issues as well as relapse prevention. He worked on identifying obstacles to his long-term sobriety. He ultimately completed his residential treatment goals and was felt to be ready for the next level of care. The patient was dismissed to his home. He is going to attend outpatient aftercare here at the [facility]. He will do individual sessions with Krystina Ugarte and will do weekly group sessions as well. He is going to attend 3 to 5 AA or NA meetings per week and obtain a sponsor and maintain regular contact with his ADMIT: 04/29/2016 RM/LOC: [facility] MR#: [id number] [id number] [id number] TUCKER SANTILLAN [address] [place] [address] General Discharge Summary SEX: M AGE: 20 : 1995 sponsor and work a strong program of recovery. If he is unable to remain clean and sober at home or if drug court requires it then he may need to go to a sober living community such as a [facility]pc house or a 3/[address] house. The patient is to seek employment and try to work a strong program of recovery while he is involved in outpatient treatment. DISCHARGE MEDICATIONS: His medications at dismissal were none. CONDITION AT DISCHARGE: Improved. PROGNOSIS: Tyndall to be somewhat guarded dependent upon his willingness to remain engaged in outpatient treatment at this time. Arron Rogel MD/ marquez JOB #: [id number] CC: Arron Rogel MD, Attending Physician FAMILY PHYSICIAN, Family Physician
== END 2016-05-27 11:43 | disposition home or self-care (01) | DRG 895 ==
LOC: ADTC 09:29
PROVIDERS: ADMIT Family Medicine
PROC: HZ43ZZZ Group Counseling for Substance Abuse Treatment, 12-Step (ICD-10-PCS; principal; 2016-04-29)
PROC: HZ34ZZZ Individual Counseling for Substance Abuse Treatment, Interpersonal (ICD-10-PCS; principal; 2016-04-29)
DX: F12.20 Cannabis dependence, uncomplicated (principal); F15.20 Other stimulant dependence, uncomplicated; F13.10 Sedative, hypnotic or anxiolytic abuse, uncomplicated; F17.210 Nicotine dependence, cigarettes, uncomplicated; F17.220 Nicotine dependence, chewing tobacco, uncomplicated; Z65.3 Problems related to other legal circumstances; Z56.0 Unemployment, unspecified